=== PATIENT | male | born 1930 | race Caucasian/White ===

== ENCOUNTER → 2016-04-28 | Outpatient (CLI) | payer OTHER ==
[~2016-04-28] VITALS: Ht 182.9 cm; Wt 79.0 kg
[~2016-04-28] MED LIST: ACETAMINOPHEN-1 EAC1 PO; ALEVE220 MG PO; APAP500 PO; AUTOJECT 21 EACH SC; CELEXA10 MG PO; FLOMAX0.4 MG PO; GLIPIZIDE 10 MG10 MG PO; LEVEMIR100 UNIT/1 SC; LIPITOR 20 MG T20 M1 PO; LISINOPRIL10 MG PO; METFORMIN HCL500 MG PO; MOVANTIK25 MG PO; NAPROSYN500 MG PO; NORCO 5-325 TA1 EACH PO; TRAMADOL 50 MG50 MG PO; TRAZODONE HCL50 MG PO; ZOFRAN ODT4 MG PO
--- NOTE | ~2016-04-28 | HPC ---
[facility] [place] [address] PAIN MANAGEMENT CONSULTATION Name: JOSETTE SHEA Room #: REG HERNANDEZ River#: [id number] Admission: 04/28/16 Attend Phys: Augustin Belle DO Discharge: Date of : 34 Report #: [id number] THIS REPORT FOR: //name// CC: Myles Belle HISTORY: The patient is an 85-year-old gentleman, prior seen 2-1/2 years ago, in January of 2015 for symptomatic lumbar radiculopathy, given L4-L5 epidural injection with excellent improvement of symptoms, somewhat lost to followup. He returns to the pain clinic today. We had a prolonged visit for approximately 25-30 minutes, greater than 50% of this time spent counseling the patient. He notes he has pain, primarily left hip and low back. He has been using a walker for the past year. Again this is chronic pain issue which had been well resolved in the past. It seems to have recurred about a year ago without antecedent trauma or overuse. He rates his pain an 8/10, exacerbated with any standing or walking. He notes pain is greater in the left than the right. 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 He has procedure scheduled this Sunday for an injection in his right eye. He does have a history of diabetic retinopathy. He denies bowel or bladder continence changes. He does have a little bit of myelopathy with some weakness noted. PHYSICAL EXAMINATION: GENERAL: Reveals an 85-year-old gentleman. BMI is 23.6 kilograms per meter squared. VITAL SIGNS: Stable as noted in the EMR. NEUROLOGIC: Cranial nerves 2-12 are grossly intact, but he does have a little decreased visual acuity in the right eye. NECK: Thyroid is modestly enlarged. Cervical range of motion is limited. EXTREMITIES: Upper extremity strength is diminished, but symmetric. HEART: Regular and rhythmical, without murmur. LUNGS: Clear to auscultation. ABDOMEN: Unremarkable. MUSCULOSKELETAL: Rises from chair with assistance, has an ataxic gait. Has some mild tenderness over the SI joints bilaterally. Positive Mick test on the right. Positive straight leg raise at 30 degrees on the right. Lower extremity strength is diminished symmetrically about 3-4/5 to all muscle groups tested. SKIN: Integument is otherwise intact. DIAGNOSTIC STUDIES: There are no recent diagnostic studies available for evaluation at this time. ASSESSMENT: Symptomatic lumbar radiculopathy by clinical exam and history of cervical radiculopathy in a gentleman with a history of cerebrovascular accident, currently anticoag[place] [address] PAIN MANAGEMENT CONSULTATION Name: JOSETTE SHEA Room #: VANDA River#: [id number] Admission: 04/28/16 Attend Phys: Augustin Belle DO Discharge: Date of : 34 Report #: [id number] RECOMMENDATIONS: 1. We will seek authorization for lumbar epidural injection under fluoroscopy at L4-L5. 2. We will ask the patient to enquire with his prescribing physician if he can get off Plavix for 7 days. This will be required for any neuraxial procedure. I will tentatively plan procedure for 05/08/2016. The patient discharged in good and stable condition after a prolonged visit. Greater than 50% of the 25+-minute visit was spent counseling the patient, reviewing interval history and discussing therapeutic options and risks. By: [id number] /nt
[2016-04-28 09:26] VITALS: BP 125/76
== END | disposition home or self-care (01) ==
LOC: PAIN 07:01
DX: M54.16 Radiculopathy, lumbar region (principal); E11.319 Type 2 diabetes mellitus with unspecified diabetic retinopathy without macular edema; Z86.73 Personal history of transient ischemic attack (TIA), and cerebral infarction without residual deficits

== ENCOUNTER 2020-05-10 09:11 | Emergency (ER) | payer OTHER ==
[~2020-05-10] VITALS: Ht 180.3 cm; Wt 80.7 kg
[2020-05-10] MEDS ORDERED: KEFLEX500 M1 PO (11:24)
[2020-05-10 12:22] VITALS: BP 109/72
== END 2020-05-10 12:23 | disposition home or self-care (01) ==
LOC: ER 09:11
DX: S91.111A Laceration without foreign body of right great toe without damage to nail, initial encounter (principal); S89.91XA Unspecified injury of right lower leg, initial encounter; E11.9 Type 2 diabetes mellitus without complications; Z79.4 Long term (current) use of insulin; Z79.899 Other long term (current) drug therapy; Z88.5 Allergy status to narcotic agent; W06.XXXA Fall from bed, initial encounter; Y93.89 Activity, other specified; Y92.89 Other specified places as the place of occurrence of the external cause; Y99.8 Other external cause status

== ENCOUNTER → 2021-01-18 | Outpatient (CLI) | payer OTHER ==
[~2021-01-18] MED LIST changes: +KEFLEX500 M1 PO
== END ==
LOC: SJCVC 09:08
PROVIDERS: ATTEND Internal Medicine
DX: R94.31 Abnormal electrocardiogram [ECG] [EKG] (principal); I49.5 Sick sinus syndrome; E78.5 Hyperlipidemia, unspecified; I49.1 Atrial premature depolarization; Z88.5 Allergy status to narcotic agent; Z79.899 Other long term (current) drug therapy; I12.9 Hypertensive chronic kidney disease with stage 1 through stage 4 chronic kidney disease, or unspecified chronic kidney disease; E11.22 Type 2 diabetes mellitus with diabetic chronic kidney disease; N18.9 Chronic kidney disease, unspecified; I63.9 Cerebral infarction, unspecified